=== PATIENT | female | born 1970 | race Caucasian/White ===

== ENCOUNTER → 2017-01-15 | Outpatient (REF) ==
[~2017-01-15] MED LIST: ADVIL 200MG TA200 MG PO; BACTRIM 400 MG-1 TAB PO; PRENATAL VITAMI1 TA5 PO; TYLENOL 500MG500 MG PO
[2017-01-15 16:36] LABS: THYROID STIMULATING HORMONE 1.03 uIU/mL (0.465-4.680)
== END ==
LOC: ZLAB.WCH 15:53
PROVIDERS: Family Medicine
DX: Z01.89 Encounter for other specified special examinations (principal)

== ENCOUNTER → 2017-08-19 | Outpatient (REF) ==
[2017-08-19 18:55] LABS: THYROID STIMULATING HORMONE 1.22 uIU/mL (0.465-4.680)
== END ==
LOC: ZLAB.WCH 18:04
PROVIDERS: Family Medicine
DX: Z01.89 Encounter for other specified special examinations (principal)

== ENCOUNTER → 2017-08-28 | Outpatient (REF) | LOC: ZLAB.WCH 17:59 | DX: Z01.89 Encounter for other specified special examinations (principal) ==

== ENCOUNTER → 2017-08-28 | Outpatient (REF) ==
[2017-08-28 18:32] LABS: TOTAL IRON BINDING CAPACITY 408 ug/dL (265-497)
[2017-08-28 19:00] LABS: FERRITIN 5 ng/mL (6-137)
== END ==
LOC: ZLAB.WCH 18:12
PROVIDERS: Family Medicine
DX: Z01.89 Encounter for other specified special examinations (principal)

== ENCOUNTER → 2018-08-31 | Outpatient (REF) ==
[2018-08-31 19:14] LABS: THYROID STIMULATING HORMONE 1.43 uIU/mL (0.465-4.680)
== END ==
LOC: ZLAB.WCH 18:31
PROVIDERS: Family Medicine
DX: Z01.89 Encounter for other specified special examinations (principal)

== ENCOUNTER → 2022-01-10 | Outpatient (CLI) | payer OTHER | LOC: COL.RAD 08:56 | DX: M54.50 Low back pain, unspecified (principal) ==